=== PATIENT | male | born 1970 | race African-American/Black ===

== ENCOUNTER 2016-08-18 07:32 | Emergency (ER) | payer SELFPAY ==
[~2016-08-18] VITALS: Ht 167.6 cm; Wt 90.7 kg
[2016-08-18] MEDS ORDERED: IBUPROFEN 600 MG TAB PO ONE (07:45)
[2016-08-18 07:46] VITALS: BP 114/84
[2016-08-18] MEDS ORDERED: cefTRIAXone SOD 1,000 MG VL IM ONE (08:45)
== END 2016-08-18 09:29 | disposition home or self-care (01) ==
LOC: ER 07:32
DX: J20.9 Acute bronchitis, unspecified (principal); J03.90 Acute tonsillitis, unspecified
CPT/HCPCS: 71020; 96372; 99284; J0696